=== PATIENT | female | born 1960 | race Two or more races ===

== ENCOUNTER 2022-10-26 08:46 | Emergency (ER) | payer OTHER ==
[~2022-10-26] VITALS: Ht 162.6 cm; Wt 81.6 kg
[2022-10-26] MEDS ORDERED: CRESTOR5 MG (09:01)
[2022-10-26] MEDS ORDERED: MICARDIS20 MG (09:01)
== END 2022-10-26 14:48 | disposition home or self-care (01) ==
LOC: ER 08:46
PROVIDERS: General Practice
DX: R42 Dizziness and giddiness (principal); E78.49 Other hyperlipidemia; I10 Essential (primary) hypertension